=== PATIENT | female | born 1980 | race African-American/Black ===

== ENCOUNTER → 2018-06-15 | Outpatient (CLI) | payer OTHER ==
[2018-06-15 13:57] LABS: FREE T3 3.03 pg/mL (2.77-5.27)
[2018-06-15 13:58] LABS: FREE T4 (FREE THYROXINE) 1.08 ng/dL (0.78-2.19)
[2018-06-15 14:12] LABS: THYROID STIMULATING HORMONE 0.93 uIU/mL (0.47-4.68)
== END ==
LOC: OD 12:48
PROVIDERS: ATTEND Specialist
DX: G47.419 Narcolepsy without cataplexy (principal); G25.81 Restless legs syndrome; G90.09 Other idiopathic peripheral autonomic neuropathy
CPT/HCPCS: 36415; 82728; 83036; 84439; 84443; 84481

== ENCOUNTER → 2018-09-26 | Outpatient (CLI) | payer OTHER ==
[2018-09-29 06:38] LABS: ENDOMYSIAL ANTIBODY IGA Negative (Negative)
[2018-09-29 07:39] LABS: DEAMIDATED GLIADIN IGA AB 4 units (0-19); DEAMIDATED GLIADIN IGG AB 3 units (0-19); T-TRANSGLUTAMINASE (TTG) IGA <2 U/mL (0-3); T-TRANSGLUTAMINASE (TTG) IGG 2 U/mL (0-5)
== END ==
LOC: OD 14:46
PROVIDERS: ATTEND Internal Medicine Gastroenterology
DX: R19.7 Diarrhea, unspecified (principal)
CPT/HCPCS: 36415; 83520

== ENCOUNTER 2019-07-11 11:54 | Emergency (ER) | payer OTHER ==
--- NOTE | 2019-07-11 13:27 | ER Document Report ---
ED Medical Screen (RME) - General Chief Complaint: Pain All Over Stated Complaint: BODY PAIN Time Seen by Provider: 07/11/19 13:21 Primary Care Provider: EBONY FAIRBANKS MD [Primary Care Provider] - Follow up as needed Mode of Arrival: Ambulatory Information source: Patient Notes: 39-year-old female presents to ED for complaint of generalized pain and weakness for the last 3 to 4 days. She does have a history of lupus, migraines, IBS, swelling and irritation with lesions to the vulva, chronic yeast infections, degenerative disc disease, spondylitis of the lumbar. He is on methotrexate, Benlysta, Ambien, folic acid, Intrarosa, amitriptyline, she was taking gabapentin until 2 weeks ago, she gets epidural steroid injections, Botox injections for her migraines, naproxen for migraines, and migrana, and Tramadol. She states she always has pain but is just much worse than normal she also has increasing dizziness and lightheadedness. I have greeted and performed a rapid initial assessment of this patient. A comprehensive ED assessment and evaluation of the patient, analysis of test results and completion of medical decision making process will be conducted by an additional ED providers. TRAVEL OUTSIDE OF THE [place] IN LAST 30 DAYS: No - Related Data Allergies/Adverse Reactions: No Known Allergies Allergy (Verified 07/11/19 13:16) Physical Exam - Vital signs Vitals: Temp Pulse Resp BP Pulse Ox 98.4 F 100 18 114/66 100 07/11/19 12:35 07/11/19 12:35 07/11/19 12:35 07/11/19 12:35 07/11/19 12:35 Course - Vital Signs Vital signs: Temp Pulse Resp BP Pulse Ox 98.4 F 100 18 114/66 100 07/11/19 12:35 07/11/19 12:35 07/11/19 12:35 07/11/19 12:35 07/11/19 12:35 Doctor's Discharge - Discharge Referrals: EBONY FAIRBANKS MD [Primary Care Provider] - Follow up as needed
[2019-07-11 14:26] LABS: ABSOLUTE LYMPHOCYTES (AUTO) 1.4 10^3/uL (0.5-4.7); ABSOLUTE MONOCYTES (AUTO) 0.5 10^3/uL (0.1-1.4); ABSOLUTE NEUT (AUTO) 3.2 10^3/uL (1.7-8.2); BASOPHILS % (AUTO) 0.2 % (0-2); EOSINOPHILS % (AUTO) 0.3 % (0-6); HEMATOCRIT 37.4 % (36.0-47.0); HEMOGLOBIN 12.1 g/dL (12.0-15.5); LYMPHOCYTES % (AUTO) 27.3 % (13-45); MEAN CORPUSCULAR HEMOGLOBIN 22.4 pg (27.0-33.4); MEAN CORPUSCULAR HGB CONC 32.5 g/dL (32.0-36.0); MEAN CORPUSCULAR VOLUME 69 fl (80-97); MONOCYTES % (AUTO) 9.1 % (3-13); PLATELET COUNT 302 10^3/uL (150-450); RED BLOOD COUNT 5.42 10^6/uL (3.72-5.28); RED CELL DISTRIBUTION WIDTH 14.6 % (11.5-14.0); SEGMENTED NEUTROPHILS % (AUTO) 63.1 % (42-78); TOTAL CELLS COUNTED % (AUTO) 100 %; WHITE BLOOD COUNT 5.2 10^3/uL (4.0-10.5)
[2019-07-11 14:37] LABS: APPEARANCE,URINE CLOUDY; BILIRUBIN,URINE NEGATIVE (NEGATIVE); COLOR,URINE YELLOW; GLUCOSE, URINE NEGATIVE (NEGATIVE); KETONES,URINE NEGATIVE (NEGATIVE); PROTEIN,URINE 30 mg/dL (NEGATIVE)
[2019-07-11 14:46] LABS: ALBUMIN 4.8 g/dL (3.5-5.0); ALKALINE PHOSPHATASE 56 U/L (38-126); ANION GAP 13 (5-19); ASPARTATE AMINO TRANSFERASE 16 U/L (14-36); BILIRUBIN,DIRECT 0.3 mg/dL (0.0-0.4); BILIRUBIN,TOTAL 0.4 mg/dL (0.2-1.3); BLOOD UREA NITROGEN 14 mg/dL (7-20); CALCIUM 10.2 mg/dL (8.4-10.2); CARBON DIOXIDE 28 mmol/L (22-30); CHLORIDE 103 mmol/L (98-107); TOTAL PROTEIN 8.4 g/dL (6.3-8.2)
[2019-07-11 14:51] LABS: GLUCOSE 69 mg/dL (75-110)
--- NOTE | 2019-07-11 15:22 | ER Document Report ---
ED Dizziness/Weakness - General Chief Complaint: Pain All Over Stated Complaint: BODY PAIN Time Seen by Provider: 07/11/19 13:21 Primary Care Provider: EBONY FAIRBANKS MD [Primary Care Provider] - Follow up as needed Mode of Arrival: Ambulatory TRAVEL OUTSIDE OF THE [place] IN LAST 30 DAYS: No - HPI Notes: Patient presents with weakness dizziness and myalgias. She states this is been regressing over the last 4 to 5 days. It is worse with exertion and better with rest. It does radiate throughout her body. It is an aching sensation. It is moderate to severe. She states that she has lupus and has had similar symptoms in the past. She states she has not had any problems with vomiting or diarrhea. 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 - Related Data Allergies/Adverse Reactions: No Known Allergies Allergy (Verified 07/11/19 13:16) Past Medical History - General Information source: Patient - Social History Smoking Status: Never Smoker Frequency of alcohol use: None Drug Abuse: None Family History: Reviewed & Not Pertinent Patient has suicidal ideation: No Patient has homicidal ideation: No Review of Systems - Review of Systems Constitutional: Malaise, Weakness Cardiovascular: denies: Chest pain, Palpitations Respiratory: denies: Cough, Short of breath -: Yes All other systems reviewed and negative Physical Exam - Vital signs Vitals: Temp Pulse Resp BP Pulse Ox 98.4 F 100 18 114/66 100 07/11/19 12:35 07/11/19 12:35 07/11/19 12:35 07/11/19 12:35 07/11/19 12:35 Interpretation: Normal - General General appearance: Appears well, Alert - HEENT Head: Normocephalic, Atraumatic Eyes: Normal Pupils: PERRL - Respiratory Respiratory status: No respiratory distress Chest status: Nontender Breath sounds: Normal Chest palpation: Normal - Cardiovascular Rhythm: Regular Heart sounds: Normal auscultation Murmur: No - Abdominal Inspection: Normal Distension: No distension Bowel sounds: Normal Tenderness: Nontender Organomegaly: No organomegaly - Back Back: Normal, Nontender - Extremities General upper extremity: Normal inspection, Nontender, Normal color, Normal ROM, Normal temperature General lower extremity: Normal inspection, Nontender, Normal color, Normal ROM, Normal temperature, Normal weight bearing. No: Jacqueline's sign - Neurological Neuro grossly intact: Yes Cognition: Normal Orientation: AAOx4 [place] Coma Scale Eye Opening: Spontaneous Danii Coma Scale Verbal: Oriented [place] Coma Scale Motor: Obeys Commands [place] Coma Scale Total: 15 Speech: Normal Motor strength normal: LUE, RUE, LLE, RLE Sensory: Normal - Psychological Associated symptoms: Normal affect, Normal mood - Skin Skin Temperature: Warm Skin Moisture: Dry Skin Color: Normal Course - Re-evaluation Re-evalutation: 07/11/19 15:19 Patient with lupus on chronic immunosuppressants. She presents with complaints of weakness dizziness and myalgias. Vital signs are unremarkable as is labora tory work-up other than a urinary tract infection. I will treat her with antibiotics for the urinary tract infection and have her follow-up back with her primary care physician. I do not believe that further emergency department evaluation would be of benefit to the patient. - Vital Signs Vital signs: Temp Pulse Resp BP Pulse Ox 98.4 F 100 18 114/66 100 07/11/19 12:35 07/11/19 12:35 07/11/19 12:35 07/11/19 12:35 07/11/19 12:35 - Laboratory Result Diagrams: 07/11/19 13:58 07/11/19 13:58 Laboratory results interpreted by me: 07/11/19 07/11/19 07/11/19 13:58 13:58 13:58 RBC 5.42 H MCV 69 L MCH 22.4 L RDW 14.6 H Glucose 69 L Total Protein 8.4 H Urine Protein 30 H Urine Blood SMALL H Urine Urobilinogen 2.0 H Leukocyte Esterase Rfl LARGE H Discharge - Discharge Clinical Impression: Lupus UTI (urinary tract infection) Qualifiers: Urinary tract infection type: acute cystitis Hematuria presence: without hematuria Qualified Code(s): N30.00 - Acute cystitis without hematuria Condition: Stable Disposition: HOME, SELF-CARE Instructions: Urinary Tract Infection ([facility]), Trimethoprim-Sulfa ([facility]) Additional Instructions: Please call your primary care physician as soon as possible to arrange follow-up Prescriptions: Sulfamethoxazole/Trimethoprim [Bactrim Ds Tablet] 1 each PO BID 7 Days #14 tablet Hydrocodone/Acetaminophen [[place] 5-325 mg Tablet] 1 tab PO Q6 PRN 3 Days #12 tablet PRN Reason: Forms: Return to Work Referrals: EBONY FAIRBANKS MD [Primary Care Provider] - Follow up as needed
[2019-07-11] MEDS ORDERED: HYDROMORPHONE HCL INJ/PF 2 MG/ML AMPULE IV ONE (16:28)
[2019-07-11 16:53] VITALS: BP 128/70
== END 2019-07-11 16:51 | disposition home or self-care (01) ==
LOC: ER 11:54
DX: N30.00 Acute cystitis without hematuria (principal); R53.1 Weakness; R42 Dizziness and giddiness; M79.10 Myalgia, unspecified site; R30.0 Dysuria; R53.81 Other malaise
CPT/HCPCS: 99283; 96374; 36415; 84703; 85025; 80053; 81001; J1170